=== PATIENT | female | born 1990 | race Caucasian/White ===

== ENCOUNTER → 2016-09-18 | Outpatient (CLI) | payer MEDICAID ==
--- NOTE | 2016-09-18 17:59 | US ---
EXAMINATION TYPE: US pelvic complete DATE OF EXAM: 09/18/2016 COMPARISON: NONE CLINICAL HISTORY: R10.2 Pelvic Pain. lLLQ pain for 5 days TECHNIQUE: Transabdominal (TA) Date of LMP: 09/01/2016 EXAM MEASUREMENTS: Uterus: 8.3 x 3.9 x 4.5 cm. Anteverted. Endometrial Stripe: 1.51 cm. Uniformly hyperechoic Right Ovary: 2.6 x 2.0 x 1.6 cm. Unremarkable. Left Ovary: 4.9 x 4.2 x 4.8 cm. There is a 3.3 cm in diameter homogeneously-hypoechoic focus within the left ovary, with low level echoes seen within and with with posterior wall enhancement and throug h sound transmission, consistent with cyst, which can be proven with 6 week follow-up ultrasound. Dop pler Doppler flow was seen at the periphery of the left ovarian finding, consistent with ovarian perf usion. Posterior cul-de-sac: No fluid, unremarkable as seen. IMPRESSION: TRANSABDOMINAL ULTRASOUND EXAMINATION SHOWS 3.3 CM LEFT OVARIAN CYST.
== END | disposition home or self-care (01) ==
LOC: RADUSMAIN 16:44
PROVIDERS: ATTEND Internal Medicine
DX: N83.202 Unspecified ovarian cyst, left side (principal)
CPT/HCPCS: 76856